=== PATIENT | female | born 1970 | race Caucasian/White ===

== ENCOUNTER 2018-07-21 22:53 | Observation (INO) | payer OTHER ==
[2018-07-21 23:04] VITALS: BMI 25.7
--- NOTE | 2018-07-22 00:53 | PDOC ---
Attending Attestation - Resident Resident Name: Carl Crook - ED Attending Attestation I have performed the following: I have examined & evaluated the patient, The case was reviewed & discussed with the resident, I agree w/resident's findings & plan - HPI HPI: 07/22/18 04:43 47-year-old female with nausea and lightheadedness - Physicial Exam PE: 07/22/18 04:43 Agree with resident's exam - Medical Decision Making 07/22/18 04:44 47-year-old female with intermittent dizziness and nausea Workup in the ED has been unremarkable She is feeling better and resolved after meclizine and Pepcid She will be discharged home to follow up with primary care
[2018-07-22] MEDS ORDERED: SODIUM CHLORIDE 1,000 ML IV STA (01:13)
[2018-07-22] MEDS ORDERED: FAMOTIDINE 20 MG/50 ML IVPB 20 MG/50 ML MG IVPB ONE ×2 (01:15→01:40)
[2018-07-22] MEDS ORDERED: ONDANSETRON 4 MG/2 ML VIAL IVPUSH ONE (01:15)
[2018-07-22] MEDS ORDERED: MECLIZINE HCL 25 MG TABLET (FP) PO ONE (01:30)
[2018-07-22] MEDS ORDERED: MECLIZINE HCL 25 MG TABLET (FP) ONE (01:39)
[2018-07-22] MEDS ORDERED: ONDANSETRON 4 MG/2 ML VIAL ONE (01:40)
[2018-07-22 01:58] LABS: BASO % 0.5 % (0-2.0); EOS % 0.4 % (0-4.5); HEMATOCRIT 39.5 % (32.4-45.2); HEMOGLOBIN 12.8 GM/dL (10.7-15.3); LYMPH % 14.2 % (8-40); MCH 26.3 pg (25.7-33.7); MCHC 32.5 g/dl (32.0-36.0); MEAN PLT VOLUME 8.9 fl (7.5-11.1); MONO % 6.1 % (3.8-10.2); NEUT % 78.8 % (42.8-82.8); PLATELET COUNT 237 K/MM3 (134-434); RBC 4.88 M/mm3 (3.60-5.2); RDW 15.3 % (11.6-15.6); WHITE BLOOD COUNT 9.1 K/mm3 (4.0-10.0)
[2018-07-22 02:13] LABS: INR 0.98 (0.83-1.09); PROTHROMBIN TIME (PATIENT) 11.6 SEC (9.7-13.0)
[2018-07-22 02:26] LABS: ALBUMIN 3.2 g/dl (3.4-5.0); ALK PHOS 90 U/L (45-117); ANION GAP 6 MMOL/L (8-16); BILIRUBIN,TOTAL 0.5 mg/dL (0.2-1); BLOOD UREA NITROGEN 14 mg/dL (7-18); CALCIUM 8.4 mg/dL (8.5-10.1); CHLORIDE 108 mmol/L (98-107); CO2 26 mmol/L (21-32); CREATININE 0.8 mg/dL (0.55-1.3); GLUCOSE,RANDOM 123 mg/dL (74-106); MAGNESIUM 2.5 mg/dL (1.8-2.4); SGOT/AST 16 U/L (15-37); SGPT/ALT 27 U/L (13-61); SODIUM 140 mmol/L (136-145); TOT PROT 7.4 g/dl (6.4-8.2)
--- NOTE | 2018-07-22 04:26 | PDOC ---
History of Present Illness - General Chief Complaint: Lightheaded Stated Complaint: VOMIT Time Seen by Provider: 07/22/18 00:51 History Source: Patient Exam Limitations: Language Barrier (phone int used) - History of Present Illness Initial Comments: 07/22/18 04:20 Patient is a 47F with history of antiphospholipid syndrome coming in complaining of two weeks of dizziness and vomiting. She reports coming in today because her symptoms have worsened. She endorses vomiting three times in the past day. Patient states her dizziness feels like the world is spinning around here and is worsened with movement. Better with rest. Denies fevers, chills, nausea, vomiting. She endorses a burning like sensation in her upper abdomen after vomiting. Denies chest pain, shortness of breath. Past History - Past Medical History Allergies/Adverse Reactions: Allergies Allergy/AdvReac Type Severity Reaction Status Date / Time No Known Allergies Allergy Verified 07/21/18 23:04 Home Medications: Ambulatory Orders NK [No Known Home Medication] 07/22/18 COPD: No - Suicide/Smoking/Psychosocial Hx Smoking History: Never smoked Review of Systems - Review of Systems Able to Perform ROS?: Yes Comments:: 07/22/18 04:22 GENERAL/CONSTITUTIONAL: No fever or chills. No weakness. HEAD, EYES, EARS, NOSE AND THROAT: No change in vision. No sore throat. CARDIOVASCULAR: No chest pain or shortness of breath RESPIRATORY: No cough, wheezing, or hemoptysis. GASTROINTESTINAL: +nausea, +vomiting, no diarrhea or constipation. GENITOURINARY: No dysuria, frequency, or change in urination. MUSCULOSKELETAL: No joint or muscle swelling or pain. No neck or back pain. SKIN: No rash NEUROLOGIC: No headache, +vertigo, no loss of consciousness, or change in strength/sensation. ENDOCRINE: No increased thirst. No abnormal weight change HEMATOLOGIC/LYMPHATIC: No anemia, easy bleeding, or history of blood clots. ALLERGIC/IMMUNOLOGIC: No hives or skin allergy. *Physical Exam - Vital Signs Last Vital Signs Temp Pulse Resp BP Pulse Ox 97.8 F 72 18 158/80 98 07/21/18 23:03 07/21/18 23:03 07/21/18 23:03 07/21/18 23:03 07/21/18 23:03 - Physical Exam Comments: 07/22/18 04:24 GENERAL: Awake, alert, and fully oriented, in no acute distress HEAD: No signs of trauma, normocephalic, atraumatic EYES: PERRLA, EOMI, sclera anicteric, conjunctiva clear ENT: Auricles normal inspection, hearing grossly normal, nares patent, oropharynx clear without exudates. Moist mucosa NECK: Normal ROM, supple, no lymphadenopathy, JVD, or masses LUNGS: No distress, speaks full sentences, clear to auscultation bilaterally HEART: Regular rate and rhythm, normal S1 and S2, no murmurs, rubs or gallops, peripheral pulses normal and equal bilaterally. ABDOMEN: Soft, nontender, normoactive bowel sounds. No guarding, no rebound. No masses EXTREMITIES: Normal inspection, Normal range of motion, no edema. No clubbing or cyanosis. NEUROLOGICAL: Cranial nerves II through XII grossly intact. Normal speech, normal gait, no focal sensorimotor deficits SKIN: Warm, Dry, normal turgor, no rashes or lesions noted. ED Treatment Course - LABORATORY CBC & Chemistry Diagram: 07/22/18 01:45 07/22/18 01:45 - ADDITIONAL ORDERS Additional order review: Laboratory Results 07/22/18 07/22/18 07/22/18 01:45 01:45 01:45 PT with INR INR Sodium 140 Potassium 4.0 Chloride 108 H Carbon Dioxide 26 Anion Gap 6 L BUN 14 Creatinine 0.8 Creat Clearance w eGFR 76.56 Random Glucose 123 H Calcium 8.4 L Magnesium 2.5 H Total Bilirubin 0.5 AST 16 ALT 27 Alkaline Phosphatase 90 Creatine Kinase 80 Troponin I < 0.02 Total Protein 7.4 Albumin 3.2 L Lipase 110 Serum , Qual Negative 07/22/18 01:45 PT with INR 11.60 INR 0.98 Sodium Potassium Chloride Carbon Dioxide Anion Gap BUN Creatinine Creat Clearance w eGFR Random Glucose Calcium Magnesium Total Bilirubin AST ALT Alkaline Phosphatase Creatine Kinase Troponin I Total Protein Albumin Lipase Serum , Qual 07/22/18 01:45 RBC 4.88 MCV 81.0 MCHC 32.5 RDW 15.3 MPV 8.9 Neutrophils % 78.8 Lymphocytes % 14.2 Monocytes % 6.1 Eosinophils % 0.4 Basophils % 0.5 - RADIOLOGY Radiology Studies Ordered: Category Date Time Status CHEST PA & LAT [RAD] Stat Radiology 07/22/18 01:13 Taken - Medications Given in the ED: ED Medications Discontinued Medications Generic Name Dose Route Start Last Admin Trade Name Gaurav PRN Reason Stop Dose Admin Famotidine/Sodium Chloride 20 mg in 50 mls @ 100 mls/hr 07/22/18 01:15 02:02 Pepcid 20 Mg Premixed Ivpb - IVPB 07/22/18 01:44 100 mls/hr ONCE ONE Administration Sodium Chloride 1,000 mls @ 1,000 mls/hr 07/22/18 01:13 07/22/18 02:02 Normal Saline - IV 07/22/18 02:12 1,000 mls/hr ASDIR STA Administration Meclizine HCl 25 mg 07/22/18 01:30 07/22/18 02:02 Antivert - PO 07/22/18 01:31 25 mg ONCE ONE Administration Ondansetron HCl 4 mg 07/22/18 01:15 07/22/18 02:02 Zofran Injection IVPUSH 07/22/18 01:16 4 mg ONCE ONE Administration Medical Decision Making - Medical Decision Making 07/22/18 04:24 Patient is 47F here today complaining of dizziness and vomiting. Vitals normal and stable. History and exam most consistent with peripheral vertigo. Do not suspect central process or stroke. Will treat vomiting, PO challenge, basic labs , cxr, ekg and discharge home. EKG shows sinus bradycardia with rate of 58. No st elevations/depressions. Normal axis. Normal intervals. No significant t wave abnormalities. CXR clear. CBC, CMP reassuring. Trop, preg negative. Patient reassessed, no longer symptomatic. Will discharge home with primary care follow up. 07/22/18 05:46 Upon discharge, patient walking with wide unsteady gait. CT head ordered, will re-evaluate. 07/22/18 06:46 CT head normal. Patient still walking with unsteady gait. Will obs for MRI. MRI ordered. *DC/Admit/Observation/Transfer Diagnosis at time of Disposition: Dizziness, Vomiting - Discharge Dispostion Disposition: HOME Condition at time of disposition: Good Decision to Admit order: No - Referrals - Patient Instructions Printed Discharge Instructions: DI for Vertigo, DI for Vomiting -- Adult Additional Instructions: Please follow up with your primary care doctor this week. If you do not have one , one is listed for you below. Please return if you have any new, worsening or concerning symptoms, especially increasing dizziness, fever, and chest pain. Por favor jenniffer un seguimiento con hill mdico de atencin primaria esta semana. Si no tiene magan, a continuacin figura magan para usted. Regrese si tiene algn sntoma nuevo, que empeora o que le preocupa, especialmente el aumento de mareos, fiebre y dolor en el pecho. - Post Discharge Activity
[2018-07-22] MEDS ORDERED: diazePAM CARPU-JECT 10 MG/2 ML DISP.SYRIN IVPUSH ONE (07:11)
--- NOTE | 2018-07-22 07:11 | PDOC ---
*Physical Exam - Vital Signs Last Vital Signs Temp Pulse Resp BP Pulse Ox 98.0 F 62 18 159/90 99 07/22/18 06:30 07/22/18 06:30 07/22/18 05:56 07/22/18 06:30 07/22/18 06:30 ED Treatment Course - LABORATORY CBC & Chemistry Diagram: 07/22/18 01:45 07/22/18 01:45 - ADDITIONAL ORDERS Additional order review: Laboratory Results 07/22/18 07/22/18 07/22/18 01:45 01:45 01:45 PT with INR INR Sodium 140 Potassium 4.0 Chloride 108 H Carbon Dioxide 26 Anion Gap 6 L BUN 14 Creatinine 0.8 Creat Clearance w eGFR 76.56 Random Glucose 123 H Calcium 8.4 L Magnesium 2.5 H Total Bilirubin 0.5 AST 16 ALT 27 Alkaline Phosphatase 90 Creatine Kinase 80 Troponin I < 0.02 Total Protein 7.4 Albumin 3.2 L Lipase 110 Serum , Qual Negative 07/22/18 01:45 PT with INR 11.60 INR 0.98 Sodium Potassium Chloride Carbon Dioxide Anion Gap BUN Creatinine Creat Clearance w eGFR Random Glucose Calcium Magnesium Total Bilirubin AST ALT Alkaline Phosphatase Creatine Kinase Troponin I Total Protein Albumin Lipase Serum , Qual 07/22/18 01:45 RBC 4.88 MCV 81.0 MCHC 32.5 RDW 15.3 MPV 8.9 Neutrophils % 78.8 Lymphocytes % 14.2 Monocytes % 6.1 Eosinophils % 0.4 Basophils % 0.5 - Medications Given in the ED: ED Medications Discontinued Medications Generic Name Dose Route Start Last Admin Trade Name Freq PRN Reason Stop Dose Admin Famotidine/Sodium Chloride 20 mg in 50 mls @ 100 mls/hr 07/22/18 01:15 02:02 Pepcid 20 Mg Premixed Ivpb - IVPB 07/22/18 01:44 100 mls/hr ONCE ONE Administration Sodium Chloride 1,000 mls @ 1,000 mls/hr 07/22/18 01:13 07/22/18 02:02 Normal Saline - IV 07/22/18 02:12 1,000 mls/hr ASDIR STA Administration Meclizine HCl 25 mg 07/22/18 01:30 07/22/18 02:02 Antivert - PO 07/22/18 01:31 25 mg ONCE ONE Administration Ondansetron HCl 4 mg 07/22/18 01:15 07/22/18 02:02 Zofran Injection IVPUSH 07/22/18 01:16 4 mg ONCE ONE Administration Medical Decision Making - Medical Decision Making 07/22/18 08:06 Patient signed out by resident Dr. Crook. In short patient is a 47 year old w/ a history of antiphospholipid syndrome who presents with 2 weeks of vomiting and dizziness that has worsened. In the ED she was treated with meclizine, pepcid, zofran, fluids. cbc, cmp, coags, head CT unremarkable Patient still vertiginous upon standing and unable to walk. ED Course: MRI ordered. Will need admission for further workup and management. Case discussed with admitting team. Patient accepted to medicine. *DC/Admit/Observation/Transfer Diagnosis at time of Disposition: Dizziness, Vomiting - Discharge Dispostion Disposition: HOME Condition at time of disposition: Good Decision to Admit order: Yes - Referrals - Patient Instructions Printed Discharge Instructions: DI for Vertigo, DI for Vomiting -- Adult Additional Instructions: Please follow up with your primary care doctor this week. If you do not have one , one is listed for you below. Please return if you have any new, worsening or concerning symptoms, especially increasing dizziness, fever, and chest pain. Por favor jenniffer un seguimiento con hill mdico de atencin primaria esta semana. Si no tiene magan, a continuacin figura magan para usted. Regrese si tiene algn sntoma nuevo, que empeora o que le preocupa, especialmente el aumento de mareos, fiebre y dolor en el pecho. - Post Discharge Activity
[2018-07-22] MEDS ORDERED: SODIUM CHLORIDE 1,000 ML IV SCH ×2 (07:15→09:19)
--- NOTE | 2018-07-22 07:48 | HP ---
CHIEF COMPLAINT: PCP: HISTORY OF PRESENT ILLNESS: ER course was notable for: (1) (2) (3) Recent Travel: PAST MEDICAL HISTORY: PAST SURGICAL HISTORY: Social History: Smoking: Alcohol: Drugs: Family History: Allergies No Known Allergies Allergy (Verified 07/21/18 23:04) HOME MEDICATIONS: Home Medications Medication Instructions Recorded NK [No Known Home Medication] 07/22/18 REVIEW OF SYSTEMS CONSTITUTIONAL: Absent: fever, chills, diaphoresis, generalized weakness, malaise, loss of appetite, weight change HEENT: Absent: rhinorrhea, nasal congestion, throat pain, throat swelling, difficulty swallowing, mouth swelling, ear pain, eye pain, visual changes CARDIOVASCULAR: Absent: chest pain, syncope, palpitations, irregular heart rate, lightheadedness , peripheral edema RESPIRATORY: Absent: cough, shortness of breath, dyspnea with exertion, orthopnea, wheezing, stridor, hemoptysis GASTROINTESTINAL: Absent: abdominal pain, abdominal distension, nausea, vomiting, diarrhea, constipation, melena, hematochezia GENITOURINARY: Absent: dysuria, frequency, urgency, hesitancy, hematuria, flank pain, genital pain MUSCULOSKELETAL: Absent: myalgia, arthralgia, joint swelling, back pain, neck pain SKIN: Absent: rash, itching, pallor HEMATOLOGIC/IMMUNOLOGIC: Absent: easy bleeding, easy bruising, lymphadenopathy, frequent infections ENDOCRINE: Absent: unexplained weight gain, unexplained weight loss, heat intolerance, cold intolerance NEUROLOGIC: Absent: headache, focal weakness or paresthesias, dizziness, unsteady gait, seizure, mental status changes, bladder or bowel incontinence PSYCHIATRIC: Absent: anxiety, depression, suicidal or homicidal ideation, hallucinations. PHYSICAL EXAMINATION Vital Signs - 24 hr 07/21/18 07/22/18 07/22/18 23:03 05:56 06:30 Temperature 97.8 F 98.0 F Pulse Rate 72 Pulse Rate [ 70 62 Right] Respiratory 18 18 Rate Blood Pressure 158/80 Blood Pressure 150/83 159/90 [Right Arm] O2 Sat by Pulse 98 99 99 Oximetry (%) GENERAL: Awake, alert, and fully oriented, in no acute distress. HEAD: Normal with no signs of trauma. EYES: Pupils equal, round and reactive to light, extraocular movements intact, sclera anicteric, conjunctiva clear. No lid lag. EARS, NOSE, THROAT: Ears normal, nares patent, oropharynx clear without exudates. Moist mucous membranes. NECK: Normal range of motion, supple without lymphadenopathy, JVD, or masses. LUNGS: Breath sounds equal, clear to auscultation bilaterally. No wheezes, and no crackles. No accessory muscle use. HEART: Regular rate and rhythm, normal S1 and S2 without murmur, rub or gallop. ABDOMEN: Soft, nontender, not distended, normoactive bowel sounds, no guarding, no rebound, no masses. No hepatomegaly or splenomegaly. MUSCULOSKELETAL: Normal range of motion at all joints. No bony deformities or tenderness. No CVA tenderness. UPPER EXTREMITIES: 2+ pulses, warm, well-perfused. No cyanosis. No clubbing. No peripheral edema. LOWER EXTREMITIES: 2+ pulses, warm, well-perfused. No calf tenderness. No peripheral edema. NEUROLOGICAL: Cranial nerves II-XII intact. Normal speech. Normal gait. PSYCHIATRIC: Cooperative. Good eye contact. Appropriate mood and affect. SKIN: Warm, dry, normal turgor, no rashes or lesions noted, normal capillary refill. Laboratory Results - last 24 hr 07/22/18 07/22/18 07/22/18 01:45 01:45 01:45 WBC 9.1 RBC 4.88 Hgb 12.8 Hct 39.5 MCV 81.0 MCH 26.3 MCHC 32.5 RDW 15.3 Plt Count 237 MPV 8.9 Absolute Neuts (auto) 7.2 Neutrophils % 78.8 Lymphocytes % 14.2 Monocytes % 6.1 Eosinophils % 0.4 Basophils % 0.5 Nucleated RBC % 0 PT with INR 11.60 INR 0.98 Sodium 140 Potassium 4.0 Chloride 108 H Carbon Dioxide 26 Anion Gap 6 L BUN 14 Creatinine 0.8 Creat Clearance w eGFR 76.56 Random Glucose 123 H Calcium 8.4 L Magnesium 2.5 H Total Bilirubin 0.5 AST 16 ALT 27 Alkaline Phosphatase 90 Creatine Kinase 80 Troponin I < 0.02 Total Protein 7.4 Albumin 3.2 L Lipase Serum , Qual 07/22/18 07/22/18 01:45 01:45 WBC RBC Hgb Hct MCV MCH MCHC RDW Plt Count MPV Absolute Neuts (auto) Neutrophils % Lymphocytes % Monocytes % Eosinophils % Basophils % Nucleated RBC % PT with INR INR Sodium Potassium Chloride Carbon Dioxide Anion Gap BUN Creatinine Creat Clearance w eGFR Random Glucose Calcium Magnesium Total Bilirubin AST ALT Alkaline Phosphatase Creatine Kinase Troponin I Total Protein Albumin Lipase 110 Serum , Qual Negative ASSESSMENT/PLAN:
[2018-07-22] MEDS ORDERED: diazePAM 2 MG TABLET PO ONE (08:31)
[2018-07-22] MEDS ORDERED: diazePAM 2 MG TABLET ONE (08:34)
[2018-07-22] MEDS ORDERED: MECLIZINE HCL 25 MG TABLET (FP) PO PRN (09:10)
[2018-07-22] MEDS ORDERED: HEPARIN NA (PORCINE) 5,000 UNITS/ML 1ML VIAL SQ SCH (09:45)
--- NOTE | 2018-07-22 11:47 | EKG ---
Test Reason : Blood Pressure : / mmHG Vent. Rate : 058 BPM Atrial Rate : 058 BPM P-R Int : 184 ms QRS Dur : 078 ms QT Int : 472 ms P-R-T Axes : 058 052 063 degrees QTc Int : 463 ms SINUS BRADYCARDIA WITH SINUS ARRHYTHMIA OTHERWISE NORMAL ECG NO PREVIOUS ECGS AVAILABLE Confirmed by ISSA MICHAEL, SURENDRA ([id number]) on 07/22/2018 11:47:22 AM Referred By: Confirmed By:SURENDRA PARSONS MD
[2018-07-22] MEDS ORDERED: HEPARIN NA (PORCINE) 5,000 UNITS/ML 1ML VIAL ONE (12:10)
--- NOTE | 2018-07-22 13:52 | HP ---
CHIEF COMPLAINT: PCP: HISTORY OF PRESENT ILLNESS: 47yo F with PMH antiphospholipid syndrome presented with dizzyness nad nausea. she had 3 episodes of non bilious and non bloody vomiting. was given meclizine and pepcid in the ER iwth resolution of symptoms was discharged from the ER and became dizzy again and d/c was cancelled. had episode many years ago but never was evaluated. denies Cp, SOB, fever, chills, N/V/C/D ER course was notable for: (1) (2) (3) Recent Travel:denies PAST MEDICAL HISTORY:as above PAST SURGICAL HISTORY: Social History: Smoking:denies Alcohol: 1-2 drinks once or twice a month Drugs: denies Family History:Father of [place] at 74 Allergies No Known Allergies Allergy (Verified 07/21/18 23:04) HOME MEDICATIONS: Home Medications Medication Instructions Recorded Aspirin [ASA -] 81 mg PO DAILY #30 tab.chew 07/22/18 Meclizine HCl 25 mg PO Q8H PRN #21 tab.chew 07/22/18 REVIEW OF SYSTEMS CONSTITUTIONAL: Absent: fever, chills, diaphoresis, generalized weakness, malaise, loss of appetite, weight change HEENT: Absent: rhinorrhea, nasal congestion, throat pain, throat swelling, difficulty swallowing, mouth swelling, ear pain, eye pain, visual changes CARDIOVASCULAR: Absent: chest pain, syncope, palpitations, irregular heart rate, lightheadedness , peripheral edema RESPIRATORY: Absent: cough, shortness of breath, dyspnea with exertion, orthopnea, wheezing, stridor, hemoptysis GASTROINTESTINAL: Absent: abdominal pain, abdominal distension, nausea, vomiting, diarrhea, constipation, melena, hematochezia GENITOURINARY: Absent: dysuria, frequency, urgency, hesitancy, hematuria, flank pain, genital pain MUSCULOSKELETAL: Absent: myalgia, arthralgia, joint swelling, back pain, neck pain SKIN: Absent: rash, itching, pallor HEMATOLOGIC/IMMUNOLOGIC: Absent: easy bleeding, easy bruising, lymphadenopathy, frequent infections ENDOCRINE: Absent: unexplained weight gain, unexplained weight loss, heat intolerance, cold intolerance NEUROLOGIC: dizziness, unsteady gait, Absent: headache, focal weakness or paresthesias, seizure, mental status changes , bladder or bowel incontinence PSYCHIATRIC: Absent: anxiety, depression, suicidal or homicidal ideation, hallucinations. PHYSICAL EXAMINATION Vital Signs - 24 hr 07/21/18 07/22/18 07/22/18 23:03 05:56 06:30 Temperature 97.8 F 98.0 F Pulse Rate 72 Pulse Rate [ 70 62 Right] Respiratory 18 18 Rate Blood Pressure 158/80 Blood Pressure 150/83 159/90 [Right Arm] O2 Sat by Pulse 98 99 99 Oximetry (%) 07/22/18 07:08 Temperature Pulse Rate Pulse Rate [ Right] Respiratory Rate Blood Pressure Blood Pressure [Right Arm] O2 Sat by Pulse 96 Oximetry (%) GENERAL: Awake, alert, and fully oriented, in no acute distress. HEAD: Normal with no signs of trauma. EYES: Pupils equal, round and reactive to light, extraocular movements intact, sclera anicteric, conjunctiva clear. No lid lag. EARS, NOSE, THROAT: Ears normal, nares patent, oropharynx clear without exudates. Moist mucous membranes. NECK: Normal range of motion, supple without lymphadenopathy, JVD, or masses. LUNGS: Breath sounds equal, clear to auscultation bilaterally. No wheezes, and no crackles. No accessory muscle use. HEART: Regular rate and rhythm, normal S1 and S2 without murmur, rub or gallop. ABDOMEN: Soft, nontender, not distended, normoactive bowel sounds, no guarding, no rebound, no masses. No hepatomegaly or splenomegaly. MUSCULOSKELETAL: Normal range of motion at all joints. No bony deformities or tenderness. No CVA tenderness. UPPER EXTREMITIES: 2+ pulses, warm, well-perfused. No cyanosis. No clubbing. No peripheral edema. LOWER EXTREMITIES: 2+ pulses, warm, well-perfused. No calf tenderness. No peripheral edema. NEUROLOGICAL: Cranial nerves II-XII intact. Normal speech. Normal gait. PSYCHIATRIC: Cooperative. Good eye contact. Appropriate mood and affect. SKIN: Warm, dry, normal turgor, no rashes or lesions noted, normal capillary refill. Laboratory Results - last 24 hr 07/22/18 07/22/18 07/22/18 01:45 01:45 01:45 WBC 9.1 RBC 4.88 Hgb 12.8 Hct 39.5 MCV 81.0 MCH 26.3 MCHC 32.5 RDW 15.3 Plt Count 237 MPV 8.9 Absolute Neuts (auto) 7.2 Neutrophils % 78.8 Lymphocytes % 14.2 Monocytes % 6.1 Eosinophils % 0.4 Basophils % 0.5 Nucleated RBC % 0 PT with INR 11.60 INR 0.98 Sodium 140 Potassium 4.0 Chloride 108 H Carbon Dioxide 26 Anion Gap 6 L BUN 14 Creatinine 0.8 Creat Clearance w eGFR 76.56 Random Glucose 123 H Calcium 8.4 L Magnesium 2.5 H Total Bilirubin 0.5 AST 16 ALT 27 Alkaline Phosphatase 90 Creatine Kinase 80 Troponin I < 0.02 Total Protein 7.4 Albumin 3.2 L Lipase TSH 1.42 Serum , Qual 07/22/18 07/22/18 01:45 01:45 WBC RBC Hgb Hct MCV MCH MCHC RDW Plt Count MPV Absolute Neuts (auto) Neutrophils % Lymphocytes % Monocytes % Eosinophils % Basophils % Nucleated RBC % PT with INR INR Sodium Potassium Chloride Carbon Dioxide Anion Gap BUN Creatinine Creat Clearance w eGFR Random Glucose Calcium Magnesium Total Bilirubin AST ALT Alkaline Phosphatase Creatine Kinase Troponin I Total Protein Albumin Lipase 110 TSH Serum , Qual Negative ASSESSMENT/PLAN: 47yo F with PMH antiphospholipid syndrome presented with dizzyness and nausea and developed unsteady gait on discharge 1. Vertigo- tele observation. received meclizine x1 and valium 2mg x1. Head CT was negative. will obtain MRI to further evaluate for thrombus formation. Neuro consulted 2. Elevated BP-will start norvasc 5mg. will need to monitor BP with PMD as outpatient 3. antiphospholipid syndrome- asa 4. DVT ppx - EAM Visit type - Emergency Visit Emergency Visit: Yes ED Registration Date: 07/22/18 Care time: The patient presented to the Emergency Department on the above date and was hospitalized for further evaluation of their emergent condition. - New Patient This patient is new to me today: No - Critical Care Critical Care patient: No
--- NOTE | 2018-07-22 13:57 | DS ---
Physical Exam: SUBJECTIVE: Patient seen and examined OBJECTIVE: Vital Signs Period Temp Pulse Resp BP Sys/Navarrete Pulse Ox Last 24 Hr 97.8 F-98.0 F 62-72 18-18 150-159/80-90 96-99 PHYSICAL EXAM GENERAL: The patient is awake, alert, and fully oriented, in no acute distress. HEAD: Normal with no signs of trauma. EYES: PERRL, extraocular movements intact, sclera anicteric, conjunctiva clear. ENT: Ears normal, nares patent, oropharynx clear without exudates, moist mucous membranes. NECK: Trachea midline, full range of motion, supple. LUNGS: Breath sounds equal, clear to auscultation bilaterally, no wheezes, no crackles, no accessory muscle use. HEART: Regular rate and rhythm, S1, S2 without murmur, rub or gallop. ABDOMEN: Soft, nontender, nondistended, normoactive bowel sounds, no guarding, no rebound, no hepatosplenomegaly, no masses. EXTREMITIES: 2+ pulses, warm, well-perfused, no edema. NEUROLOGICAL: Cranial nerves II through XII grossly intact. Normal speech, gait not observed. PSYCH: Normal mood, normal affect. SKIN: Warm, dry, normal turgor, no rashes or lesions noted. LABS Laboratory Results - last 24 hr 07/22/18 07/22/18 07/22/18 01:45 01:45 01:45 WBC 9.1 RBC 4.88 Hgb 12.8 Hct 39.5 MCV 81.0 MCH 26.3 MCHC 32.5 RDW 15.3 Plt Count 237 MPV 8.9 Absolute Neuts (auto) 7.2 Neutrophils % 78.8 Lymphocytes % 14.2 Monocytes % 6.1 Eosinophils % 0.4 Basophils % 0.5 Nucleated RBC % 0 PT with INR 11.60 INR 0.98 Sodium 140 Potassium 4.0 Chloride 108 H Carbon Dioxide 26 Anion Gap 6 L BUN 14 Creatinine 0.8 Creat Clearance w eGFR 76.56 Random Glucose 123 H Calcium 8.4 L Magnesium 2.5 H Total Bilirubin 0.5 AST 16 ALT 27 Alkaline Phosphatase 90 Creatine Kinase 80 Troponin I < 0.02 Total Protein 7.4 Albumin 3.2 L Lipase TSH 1.42 Serum , Qual 07/22/18 07/22/18 01:45 01:45 WBC RBC Hgb Hct MCV MCH MCHC RDW Plt Count MPV Absolute Neuts (auto) Neutrophils % Lymphocytes % Monocytes % Eosinophils % Basophils % Nucleated RBC % PT with INR INR Sodium Potassium Chloride Carbon Dioxide Anion Gap BUN Creatinine Creat Clearance w eGFR Random Glucose Calcium Magnesium Total Bilirubin AST ALT Alkaline Phosphatase Creatine Kinase Troponin I Total Protein Albumin Lipase 110 TSH Serum , Qual Negative HOSPITAL COURSE: Date of Admission:07/21/18 Date of Discharge: 07/22/18 admitting diagnosis: Vertigo Pre hospital course 47yo F with PMH antiphospholipid syndrome presented with dizzyness nad nausea. she had 3 episodes of non bilious and non bloody vomiting. was given meclizine and pepcid in the ER iwth resolution of symptoms was discharged from the ER and became dizzy again and d/c was cancelled. had episode many years ago but never was evaluated. denies Cp, SOB, fever, chills, N/V/C/D Subsequent hospital course Symptoms resolved after valium given. MRI done and was negative. pt was able to ambulate without difficulty. spoke with neuro who agreed patient can go home and follow up with as outpatient. meclzine given. recommended eye exam as pt has not had optho eval as outpatient to see if pt qualifies for glasses Minutes to complete discharge: 40 Discharge Summary Reason For Visit: VOMIT Current Active Problems Antiphospholipid antibody syndrome (Chronic) Condition: Improved - Instructions Diet, Activity, Other Instructions: PLease take medication as needed for dizzyness. Drink plenty of water. PLease follow up with an parcel post order clerk for an eye exam. Follow up with neurologist. his information has been provieded. Please follow up with your primary care doctor this week. If you do not have one , one is listed for you below. Please return if you have any new, worsening or concerning symptoms, especially increasing dizziness, fever, and chest pain. Por favor jenniffer un seguimiento con hill mdico de atencin primaria esta semana. Si no tiene magan, a continuacin figura magan para usted. Regrese si tiene algn sntoma nuevo, que empeora o que le preocupa, especialmente el aumento de mareos, fiebre y dolor en el pecho. Referrals: Alonso Singh MD [Staff Physician] - (primary care) Regis Lester DO [Staff Physician] - (neurology) Disposition: HOME - Home Medications Comprehensive Discharge Medication List: Ambulatory Orders Aspirin [ASA -] 81 mg PO DAILY #30 tab.chew 07/22/18 Meclizine HCl 25 mg PO Q8H PRN #21 tab.chew 07/22/18 This patient is new to me today: Yes Date on this admission: 07/22/18 Emergency Visit: Yes Care time: The patient presented to the Emergency Department on the above date and was hospitalized for further evaluation of their emergent condition. Critical Care patient: No - Discharge Referral Referred to [facility] No
[2018-07-22 14:14] VITALS: BP 141/79; PULSE 70; TEMP 97.9
== END 2018-07-22 14:27 | disposition home or self-care (01) ==
LOC: JER 22:53 → JERBED 07-22 07:58 → JER 07-22 14:27
PROC: 3E033GC Introduction of Other Therapeutic Substance into Peripheral Vein, Percutaneous Approach (ICD-10-PCS; principal; 2018-07-22)
PROC: 3E0337Z Introduction of Electrolytic and Water Balance Substance into Peripheral Vein, Percutaneous Approach (ICD-10-PCS; 2018-07-22)
PROC: 3E013GC Introduction of Other Therapeutic Substance into Subcutaneous Tissue, Percutaneous Approach (ICD-10-PCS; 2018-07-22)
DX: R42 Dizziness and giddiness (principal); R11.10 Vomiting, unspecified; R26.81 Unsteadiness on feet; R00.1 Bradycardia, unspecified; D68.61 Antiphospholipid syndrome; R03.0 Elevated blood-pressure reading, without diagnosis of hypertension
CPT/HCPCS: 36415; 70450-TC; 70551-TC; 71046-TC-FY; 80053; 82550; 83690; 83735; 84443; 84484; 84703; 85025; 85610; 93005; 93010; 96361; 96365; 96372; 96375; 99285-25; G0378; J1644; J7030

== ENCOUNTER 2024-08-21 13:20 | Emergency (ER) | payer OTHER ==
[2024-08-21 13:30] VITALS: PULSE 75; RESP 18; BMI 29.0
[2024-08-21] MEDS ORDERED: FLUORESCEIN NA 1 EA STRIP ONE (15:58)
[2024-08-21] MEDS ORDERED: TETRACAINE 0.5% OPHTH SOLN 2 ML BOTTLE ONE (15:59)
[2024-08-21] MEDS: TETRACAINE 0.5% HCL 0.6ML DROPPER.BOTTLE OD ONE (16:15)
[2024-08-21] MEDS: FLUORESCEIN NA 1 EA STRIP OD ONE (16:15)
[2024-08-21 17:51] VITALS: BP 157/67; TEMP 98.6
== END 2024-08-21 18:43 | disposition short-term general hospital (02) ==
LOC: JERFT 13:20
DX: H54.61 Unqualified visual loss, right eye, normal vision left eye (principal)
CPT/HCPCS: 99283-25